=== PATIENT | female | born 1995 | race Hispanic/Latino ===

== ENCOUNTER 2018-02-04 14:26 | Emergency (ER) | payer OTHER, SELFPAY ==
[2018-02-04] MEDS ORDERED: ONDANSETRON 4 MG (ODT) TAB ONE (16:35)
--- NOTE | 2018-02-04 16:50 | EDPHYS ---
Physician Documentation [facility] Name: Millicent Mccollum Age: 22 yrs Sex: Female : 1995 Arrival Date: 02/04/2018 Time: 14:28 Bed 17 Private MD: ED Physician Jose Armando Mosquera HPI: 02/04 16:05 This 22 yrs old Female presents to ER via Ambulatory with complaints of cp Abdominal Pain. 16:05 The patient presents with abdominal pain in the epigastric area. Onset: The cp symptoms/episode began/occurred today, at 13:00, lasted approximately 30 minutes, now resolved. The symptoms do not radiate. Associated signs and symptoms: Pertinent positives: nausea, Pertinent negatives: constipation, diarrhea, vaginal discharge, vomiting, vaginal bleeding. 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 - Social history:: Smoking status: Patient/guardian denies using tobacco. ROS: 16:07 Eyes: Negative for injury, pain, redness, and discharge. cp 16:07 Constitutional: Negative for body aches, chills, fever, poor PO intake. 16:07 ENT: Negative for drainage from ear(s), ear pain, sore throat, difficulty swallowing, difficulty handling secretions. 16:07 Cardiovascular: Negative for chest pain, edema, palpitations. 16:07 Respiratory: Negative for cough, shortness of breath, wheezing. 16:07 Abdomen/GI: Positive for nausea, Negative for abdominal pain, diarrhea, constipation, anorexia, dysphagia, black/tarry stool, rectal bleeding. 16:07 Back: Negative for pain at rest, pain with movement, radiated pain. 16:07 Skin: Negative for cellulitis, rash. 16:07 Neuro: Negative for altered mental status, headache, weakness. 16:07 All other systems are negative. Exam: 16:08 Head/Face: Normocephalic, atraumatic. cp 16:08 Constitutional: The patient appears in no acute distress, alert, awake, non-toxic, well developed, thin 16:08 Eyes: Periorbital structures: appear normal, Conjunctiva: normal, no exudate, no injection, Sclera: no appreciated abnormality, Lids and lashes: appear normal, bilaterally. 16:08 ENT: External ear(s): are unremarkable, Nose: is normal, Mouth: Lips: moist, Oral mucosa: pink and intact, moist, Posterior pharynx: is normal, airway is patent, no erythema, no exudate, Voice: is normal. 16:08 Neck: ROM/movement: is normal, is supple, without pain, no range of motions limitations, no meningismus, no nuchal rigidity. 16:08 Chest/axilla: Inspection: normal, Palpation: is normal, no crepitus, no tenderness. 16:08 Cardiovascular: Rate: normal, Rhythm: regular. 16:08 Respiratory: the patient does not display signs of respiratory distress, Respirations: normal, no use of accessory muscles, no retractions, no splinting, no tachypnea, labored breathing, is not present, Breath sounds: are clear throughout, no decreased breath sounds, no stridor, no wheezing. 16:08 Abdomen/GI: Inspection: abdomen appears normal, Bowel sounds: active, all quadrants, Palpation: soft, in all quadrants, mild abdominal tenderness, in the epigastric area, rebound tenderness, is not appreciated, voluntary guarding, is not appreciated, involuntary guarding, is not appreciated. 16:08 Back: pain, is absent, ROM is normal. Vital Signs: 14:47 BP 108 / 76; Pulse 77; Resp 18; Temp 98.5(TE); Pulse Ox 100% on R/A; Weight 31.75 kg; hj Height 4 ft. 10 in. (147.32 cm); Pain 0/10; 16:42 BP 109 / 72; Pulse 84; Resp 16; Pulse Ox 100% on R/A; mh5 17:21 BP 111 / 83; Pulse 79; Resp 18; Pulse Ox 99% on R/A; Pain 0/10; em 14:47 Body Mass Index 14.63 (31.75 kg, 147.32 cm) MDM: 15:56 Patient medically screened. cp 16:30 Differential diagnosis: appendicitis, cholecystitis, Cholelithiasis, gastritis, cp pancreatitis, Peptic Ulcer Disease, Perf. Duodenal Ulcer, Perf. Gastric Ulcer, Ureterolithiasis, urinary tract infection. 16:45 Data reviewed: vital signs, nurses notes, lab test result(s), radiologic studies, CT cp scan. 16:45 Counseling: I had a detailed discussion with the patient and/or guardian regarding: the cp historical points, exam findings, and any diagnostic results supporting the discharge/admit diagnosis, lab results, radiology results, to return to the emergency department if symptoms worsen or persist or if there are any questions or concerns that arise at home. Response to treatment: the patient's symptoms have markedly improved after treatment. Special discussion: Based on the patient's Hx, exam, and Dx evaluation, there is no indication for emergent surgery or inpatient Tx. It is understood by the patient/guardian that if the Sx's persist or worsen they need to return immediately for re-evaluation. ED course: VSS. CT abdomen/pelvis negative for acute findings. Vomiting resolved and patient tolerating po fluids. Will discharge to home for continued monitroing. 02/04 16:36 Order name: Urine Dipstick--Ancillary (enter results) bd 02/04 16:36 Order name: Urine --Ancillary (enter results) bd 02/04 16:06 Order name: Urine Dipstick-Ancillary (obtain specimen); Complete Time: 16:22 cp 02/04 16:06 Order name: Urine Test (obtain specimen); Complete Time: 16:22 cp 02/04 16:35 Order name: PO challenge; Complete Time: 16:45 cp Administered Medications: 16:33 Drug: Zofran 4 mg Route: PO; em 17:18 Follow up: Response: No adverse reaction em Disposition: 02/05 11:34 Co-signature as Attending Physician, Jose Armando Mosquera MD I agree with the assessment and [facility] plan of care. Disposition: 02/04/18 16:49 Discharged to Home. Impression: Nausea. - Condition is Stable. - Discharge Instructions: Nausea, Adult. - Medication Reconciliation Form, Thank You Letter, Antibiotic Education, Prescription Opioid Use form. - Follow up: Private Physician; When: 1 - 2 days; Reason: Recheck today's complaints. - Problem is new. - Symptoms have improved. Signatures: Dispatcher [employer] Jose Armando Cain MD MD cha Munoz, Edgar, [employer] em Abhishek Gonzalez RN RN hj Page, Jose Armando, PA PA cp
--- NOTE | 2018-02-04 16:50 | ER ---
Nurse's Notes [facility] Name: Millicent Mccollum Age: 22 yrs Sex: Female : 1995 Arrival Date: 02/04/2018 Time: 14:28 Bed 17 Private MD: Diagnosis: Nausea Presentation: 02/04 14:45 Presenting complaint: Patient states: i have a very bad sharp pain on my stomach hj started around 1:30pm today; reports nausea; reports chills; denies diarrhea and contipation;. Transition of care: patient was not received from another setting of care. Onset of symptoms was February 04, 2018. Care prior to arrival: None. 14:45 Method Of Arrival: Ambulatory 14:45 Acuity: LINH 3 hj Triage Assessment: 14:46 General: Appears in no apparent distress. uncomfortable, emaciated, Behavior is calm, hj cooperative, appropriate for age. Pain: Complains of pain in right upper quadrant and left upper quadrant. GI: Reports upper abdominal pain, nausea. 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 - Social history:: Smoking status: Patient/guardian denies using tobacco. Screenin:47 Abuse screen: Denies threats or abuse. Nutritional screening: No deficits noted. em Tuberculosis screening: No symptoms or risk factors identified. Fall Risk None identified. Assessment: 14:47 GI: Bowel sounds present X 4 quads. Abd is soft. hj 16:14 General: Appears in no apparent distress. comfortable, Behavior is calm, cooperative, em Denies fever. Pain: Denies pain. Neuro: Level of Consciousness is awake, alert, obeys commands, Oriented to person, place, time, situation. Cardiovascular: Capillary refill < 3 seconds Patient's skin is warm and dry. Respiratory: Airway is patent Respiratory effort is even, unlabored, Respiratory pattern is regular, symmetrical. GI: Abdomen is flat, Bowel sounds present X 4 quads. Abd is soft and non tender X 4 quads. : No signs and/or symptoms were reported regarding the genitourinary system. EENT: No signs and/or symptoms were reported regarding the EENT system. Derm: Skin is intact, Skin is pink, warm \T\ dry. Musculoskeletal: Range of motion: intact in all extremities. 17:05 Reassessment: Patient appears in no apparent distress at this time. Patient and/or em family updated on plan of care and expected duration. Pain level reassessed. Patient is alert, oriented x 3, equal unlabored respirations, skin warm/dry/pink. given water for PO challenge, tolerated well Patient states feeling better. Patient states symptoms have improved. Vital Signs: 14:47 BP 108 / 76; Pulse 77; Resp 18; Temp 98.5(TE); Pulse Ox 100% on R/A; Weight 31.75 kg; hj Height 4 ft. 10 in. (147.32 cm); Pain 0/10; 16:42 BP 109 / 72; Pulse 84; Resp 16; Pulse Ox 100% on R/A; mh5 17:21 BP 111 / 83; Pulse 79; Resp 18; Pulse Ox 99% on R/A; Pain 0/10; em 14:47 Body Mass Index 14.63 (31.75 kg, 147.32 cm) ED Course: 14:28 Patient arrived in ED. mr 14:46 Triage completed. hj 14:47 Arm band placed on right wrist. hj 15:55 Jose Armando Braxton PA is PHCP. cp 15:55 Jose Armando Mosquera MD is Attending Physician. cp 15:58 Memo Hair LVN is Primary Nurse. em 16:15 Patient has correct armband on for positive identification. Bed in low position. Call em light in reach. Side rails up X2. Adult w/ patient. 16:47 No provider procedures requiring assistance completed. em 17:20 Patient did not have IV access during this emergency room visit. em Administered Medications: 16:33 Drug: Zofran 4 mg Route: PO; em 17:18 Follow up: Response: No adverse reaction em Outcome: 16:49 Discharge ordered by . cp 17:20 Discharged to home ambulatory. em 17:20 Condition: good 17:20 Discharge instructions given to patient, Instructed on discharge instructions, follow up and referral plans. Demonstrated understanding of instructions, follow-up care. 17:21 Patient left the ED. em Signatures: Jaimie Levy mr Dyeroz, Memo, PRINTER HELPER PRINTER HELPER em Abhishek Gonzalez, LAURENCE RN hj Jose Armando Braxton PA PA cp Martinez, Maria [facility] Corrections: (The following items were deleted from the chart) 14:48 14:47 Pulse 77bpm; Resp 18bpm; Pulse Ox 100% RA; Temp 98.5F Temporal; 31.75 kg; Height hj 4 ft. 10 in.; BMI: 14.6; Pain 0/10; hj
[2018-02-04 17:27] LABS: Urine Blood NEGATIVE (NEG); Urine Glucose NEGATIVE (NEG); Urine Protein NEGATIVE (NEG); Urine pH 7.5 (5.0-7.0)
== END 2018-02-04 17:21 | disposition home or self-care (01) ==
LOC: ER 14:26
DX: R11.0 Nausea (principal); D64.9 Anemia, unspecified
CPT/HCPCS: 81003; 81025; 99283